=== PATIENT | female | born 1955 | race Two or more races ===

== ENCOUNTER 2017-02-10 16:32 | Inpatient (IN) | payer MEDICARE, MEDICAID ==
[~2017-02-10] VITALS: Ht 147.3 cm; Wt 61.7 kg
--- NOTE | 2017-02-10 16:35 | NUR ---
BIB PRIVATE EMT FROM [facility] FOR MEDICAL CLEARANCE PRIOR TO GPS ADMISSION FOR AGITATION AND DTO, NAD NOTED, VSS, RESP EVEN AND UNLABORED. AT BS.
--- NOTE | 2017-02-10 16:40 | NUR ---
BLOOD AND URINE SAMPLE SENT TO LAB
[2017-02-10 16:58] LABS: BASOPHILS % (AUTO) 0.2 % (0.0-2.0); EOSINOPHILS % (AUTO) 0.3 % (0.0-6.0); HEMATOCRIT 43 % (33-45); HEMOGLOBIN 14.1 g/dL (11.5-14.8); LYMPHOCYTES # (AUTO) 2.3 /CMM (0.8-4.8); LYMPHOCYTES % (AUTO) 18.7 % (20.0-44.0); MEAN CORPUSCULAR HEMOGLOBIN 30 PG (26.0-33.0); MEAN CORPUSCULAR HGB CONC 33 g/dl (31.0-36.0); MEAN CORPUSCULAR VOLUME 90 fL (82-100); MONOCYTES # (AUTO) 0.6 /CMM (0.1-1.30); MONOCYTES % (AUTO) 4.9 % (2.0-12.0); NEUTROPHILS # (AUTO) 9.4 /CMM (1.8-8.9); NEUTROPHILS % (AUTO) 75.9 % (43.0-81.0); PLATELET COUNT (AUTO) 286 /CMM (150-450); RDW COEFFICIENT OF VARIATION 13.6 (11.5-15.0); RED BLOOD CELL COUNT(AUTO) 4.74 MIL/uL (4.0-5.2); WHITE BLOOD COUNT (AUTO) 12.4 K/uL (4.3-11.0)
[2017-02-10 17:13] LABS: CALCIUM, SERUM 9.5 mg/dL (8.5-10.1); CARBON DIOXIDE 23 mmol/L (21-32); CHLORIDE 105 mmol/L (98-107); CREATININE 0.9 mg/dL (0.6-1.3); GLUCOSE 115 mg/dL (74-106); SODIUM SERUM 137 mmol/L (136-145); UREA NITROGEN, BLOOD 16 mg/dL (7-18)
[2017-02-10 17:16] LABS: ALCOHOL, BLOOD < 3 mg/dL (0-0)
[2017-02-10 17:19] LABS: TROPONIN I < 0.017 ng/mL (0.00-0.056)
[2017-02-10 17:40] LABS: APPEARANCE,URINE CLEAR (CLEAR); BILIRUBIN,URINE NEGATIVE (NEGATIVE); BLOOD, URINE NEGATIVE Ery/uL (NEGATIVE); COLOR,URINE YELLOW (YELLOW); KETONES,URINE NEGATIVE (NEGATIVE); LEUKOCYTE ESTERASE ,URINE NEGATIVE (NEGATIVE); NITRITE, URINE NEGATIVE (NEGATIVE); PROTEIN,URINE NEGATIVE (NEGATIVE); UGLUCOSE NEGATIVE (NEGATIVE); UROBILINOGEN,URINE 0.2 EU/dL (0.2)
--- NOTE | 2017-02-10 18:18 | NUR ---
REPORT GIVEN TO [facility] FOR [facility]
[2017-02-10] MEDS ORDERED: ACETAMINOPHEN 325 MG TABLET PO PRN (18:30)
[2017-02-10 18:49] VITALS: BP 123/78
--- NOTE | 2017-02-10 18:51 | NUR ---
Pt. arrived in the unit via a wheelchair from ER and wheeled by EMT. V/S taken, contraband done and dinner served. Dr. Boo notified about the admission and gave orders. Will endorse to the incoming nurse for the completion of the admission.
[2017-02-10 19:04] LABS: THYROID STIMULATING HORMONE 2.591 uIU/mL (0.358-3.74)
[2017-02-10 20:00] VITALS: BP 115/68
--- NOTE | 2017-02-10 21:55 | NUR ---
ADMISSION NOTES ADMITTED THIS 61 Y/O FEMALE PATIENT ADMIT FROM [facility] ER , PT. INTIALLY CAME FROM HOME. PT IS ON 5150 HOLD FOR GD, DANGER TO HER SELF , DANGER TO OTHERS PER HOLD HER SISTER HOUSE FOR THREATS MANIC SCREAMING YELLING THREATS TO HURT THEM , DELUSIONAL BELIVES THAT HER HOUSE WAS TAKEN FROM HER. UPON FACE TO FACE ASSESSMENT PATIENT IS A&O X-2-3, DEPRESSED DISORGANIZED THOUGHTS DISHELVED , EASILY AGITATED ,THE PT. MOOD DEPRESSED PT. IS POOR HISTORIAN, POOR INSIGHT ,POOR JUDGEMENT ,V/S WNL, NO ACUTE RESPIRATORY , UNOBTAIN TO ANY MEDICAL HX AND LIST OF MEDICATION ,MD AWARE AND NOTIFIED OF THE ADMISSION, PT. REFUSED TO SIGNS ON ADMISSION DOCMENTS AND PT. REFUSED SKIN ASSESSMENT PER PT. MY SKIN IS CLEAR. BELONGINGS AND CONTRABAND CHECKED AND PLACED IN THE SAFE CABINET. PATIENT RIGHT HAND BOOK GIVEN AND EXPLAINED TO THE PT. ALL NEEDS ATTENDED AND ANTICIPATED.ENCOURAGED PT. VERVALIZED ANY FEELING OR CONCERN TO STAFF, ORIENTED TO UNIT WILL CONTINUE TO MONITOR FOR SAFETY AND BEHAVIOR.
[2017-02-10] MEDS: TEMAZEPAM 7.5 MG CAPSULE PO PRN (22:36)
[2017-02-11 07:53] LABS: ALBUMIN 3.5 g/dL (3.4-5.0); BILIRUBIN,TOTAL 0.3 mg/dL (0.2-1.0); CALCIUM, SERUM 9.2 mg/dL (8.5-10.1); CREATININE 0.8 mg/dL (0.6-1.3); POTASSIUM 4.7 mmol/L (3.5-5.1); TOTAL PROTEIN, SERUM 7.5 g/dL (6.4-8.2)
[2017-02-11 07:55] VITALS: BP 122/83
[2017-02-11 08:01] LABS: CHOLESTEROL 249 mg/dL (<200); HDL CHOLESTEROL 48 mg/dL (40-60); LDL 168 mg/dL (0-99); TRIGLYCERIDES 215 mg/dL (30-150)
[2017-02-11] MEDS: risperiDONE 1 MG TABLET PO SCH ×2 (10:00→17:00)
[2017-02-11] MEDS ORDERED: risperiDONE 1 MG TABLET PO PRN (14:30)
[2017-02-11 16:00] VITALS: BP 141/80
[2017-02-11] MEDS: BENZTROPINE MESYLATE (1 MG) 1 MG TABLET PO SCH (17:00)
[2017-02-11 19:48] VITALS: BP 121/73
[2017-02-11] MEDS: TEMAZEPAM 7.5 MG CAPSULE PO PRN (21:51)
[2017-02-12 08:00] VITALS: BP 116/76
[2017-02-12] MEDS: BENZTROPINE MESYLATE (1 MG) 1 MG TABLET PO SCH ×2 (08:32→16:50)
[2017-02-12] MEDS: risperiDONE 1 MG TABLET PO SCH ×2 (08:32→16:50)
--- NOTE | 2017-02-12 08:33 | NUR ---
GPS RN NOTE: PATIENT IN THE ROOM CALM AND QUET NO S/S DISTRESS NOTED PATIENT DENIES SI/HI AT THIS TIME DEPRESSED MOOD PATIENT REFUSED MA MEDICATIONS PT STATED "IM TAKING ONLY SLEEPING PILLS THAT IS ALL I NEED " VSS WNL WILL CONTINUE MONITORING FOR SAFETY AND BEHAVIOR Q 15 MIN
[2017-02-12 16:08] VITALS: BP 120/60
--- NOTE | 2017-02-12 17:17 | NUR ---
GPS RN NOTE: PATIENT REFUSED ALL SHIFT MEDICATIONS DR JEFFERSON AWARE, WILL CONTINUE MONITORING FOR SAFETY AND BEHAVIOR Q 15 MIN.
[2017-02-12] MEDS: MAGNESIUM HYDROXIDE 30 ML UDC PO PRN (18:10)
[2017-02-12 20:07] VITALS: BP 112/68
--- NOTE | 2017-02-12 21:44 | NUR ---
GPS RN: PATIENT COMPLAINED OF ABDOMINAL PAIN AND NOT BEING ABLE TO PASS STOOLS FOR A COUPLE OF DAYS. PATIENT GIVEN MOM BY DAY SHIFT NURSE , BUT WAS NOT EFFECTIVE. AROUND 1929, PATIENT WAS GIVEN PRUNE JUICE BY KENNEL HELPER AWAITING FOR ANY EFFECTS. AT AROUND 2129, PATIENT COMPLAINED STILL OF ABDOMINAL PAIN AND DISCOMFORT. JAYY OLIVARES CALLED FOR ANY FURTHER ORDERS. HE CALLED BACK FOR ORDERS TO DO ABDOMINAL XRAY, IF NEGATIVE FOR ANY OBSTRUCTION THEN PATIENT CAN BE GIVEN FLEET ENEMA. ORDERS NOTED AND CARRIED OUT. PATIENT WHEELED DOWN TO RADIOLOGY DEPARTMENT WITH THUAN BRASWELL. AWAITING FOR RESULTS.
[2017-02-12] MEDS: TEMAZEPAM 7.5 MG CAPSULE PO PRN (23:21)
[2017-02-13] MEDS ORDERED: NA PHOS,M-B/NA PHOS,DI-BA 1 EA ENEMA RC STA (00:08)
[2017-02-13] MEDS ORDERED: NA PHOS,M-B/NA PHOS,DI-BA 1 EA ENEMA RC ONE (00:12)
--- NOTE | 2017-02-13 00:30 | NUR ---
GPS RN: ABDOMINAL X-RAY RESULTS SHOWED NO EVIDENCE OF OBSTRUCTION, NO ABNORMAL CALCIFICATIONS ON THE URINARY TRACTS. FLEET ENEMA THEN ORDERED PREVIOUSLY ORDERED BY PATIENT IS CONFUSED, DENIES ANY SUICIDAL THOUGHTS OR PLANS THIS TIME. JAYY OLIVARES NP. BRAYDEN GROVER RN TOOK THE MEDICATION FROM THE OMNICELL OVERRIDE AND ADMINISTERED TO THE PATIENT.
[2017-02-13 08:06] VITALS: BP 121/76
[2017-02-13] MEDS: risperiDONE 1 MG TABLET PO SCH ×2 (08:07→17:00)
[2017-02-13] MEDS: BENZTROPINE MESYLATE (1 MG) 1 MG TABLET PO SCH ×2 (08:07→17:00)
--- NOTE | 2017-02-13 08:59 | NUR ---
Initial discharge plan: Per patient she lives with her two sisters Josefa and Lisa ([address] [place] [address]). She does not want to return with her sisters upon discharge. SW to communicate with the patients sister (Josefa Beckwith- [phone]) regarding most appropriate discharge plan. SW to help form a safe and proper discharge.
--- NOTE | 2017-02-13 12:42 | NUR ---
equipment worker spoke to patients sister (Josefa Beckwith- [phone]) patient's sister's stated that they can no longer take care of the patient and will need placement. equipment worker will follow-up.
[2017-02-13 15:54] VITALS: BP 100/66
[2017-02-13 20:17] VITALS: BP 119/70
[2017-02-13] MEDS: TEMAZEPAM 7.5 MG CAPSULE PO PRN (21:01)
[2017-02-14] MEDS: risperiDONE 1 MG TABLET PO SCH ×2 (08:38→16:28)
[2017-02-14] MEDS: BENZTROPINE MESYLATE (1 MG) 1 MG TABLET PO SCH ×2 (08:38→16:28)
[2017-02-14 08:39] VITALS: BP 107/69
--- NOTE | 2017-02-14 11:32 | NUR ---
campaign worker spoke to patient regarding placement. Patient appeared frustrated and irritable, Patient stated that she wanted to return home to [address] [address], However, per patient's sisters patient sold that house and she no longer owns it. Patient began to yell about how she worked for [employer] and did not receive insurance money. Patient yelling and irritable and unable to discuss placement. campaign worker will attempt again later.
[2017-02-14 16:37] VITALS: BP 127/77
--- NOTE | 2017-02-14 18:05 | NUR ---
RN-CO: Patient refused all her medications in the afternoon. Patient stated " you all are pushers of medications!" She became agitated when I asked her twice.
[2017-02-14 19:53] VITALS: BP 103/59
[2017-02-14] MEDS: TEMAZEPAM 7.5 MG CAPSULE PO PRN (21:07)
[2017-02-15 07:01] VITALS: BP 110/62
[2017-02-15 08:09] VITALS: BP 126/76
[2017-02-15] MEDS: BENZTROPINE MESYLATE (1 MG) 1 MG TABLET PO SCH ×2 (08:47→15:41)
[2017-02-15] MEDS: risperiDONE 1 MG TABLET PO SCH (08:48)
--- NOTE | 2017-02-15 09:00 | NUR ---
GPS/RN PATIENT ADAMANTLY REFUSED ALL 0900 MEDICATIONS X 3, EXPLAINED RISKS AND BENEFITS, CONTINUES TO REFUSE, WILL CONTINUE TO ENCOURAGE TO COMPLY WITH MD REGIMEN.
[2017-02-15] MEDS: MAGNESIUM HYDROXIDE 30 ML UDC PO PRN (15:41)
[2017-02-15 16:43] VITALS: BP 115/71
[2017-02-15] MEDS: HALOPERIDOL 5 MG TABLET PO SCH (16:54)
[2017-02-15 20:00] VITALS: BP 115/73
[2017-02-15] MEDS: TEMAZEPAM 7.5 MG CAPSULE PO PRN (21:37)
[2017-02-16 08:00] VITALS: BP 119/72
[2017-02-16] MEDS: HALOPERIDOL 5 MG TABLET PO SCH ×2 (08:35→18:03)
[2017-02-16] MEDS: BENZTROPINE MESYLATE (1 MG) 1 MG TABLET PO SCH ×2 (08:35→18:03)
--- NOTE | 2017-02-16 15:48 | NUR ---
community mental health social worker spoke to patient regarding placement. Patient appeared more calm, Patient stated that she wanted to return home to [address] [address], However, per patient's sisters patient sold that house and she no longer owns it. community mental health social worker informed patient that her sister's had stated that she no longer owned that house and that she had sold it. community mental health social worker informed patient that she cannot be discharged to a home she does not own or live there any longer. community mental health social worker asked patient if she wnated placement as her sisters stated that she can no longer live with her. Patient became frustrated and irritable and began to yell about how they had committed fraud and she had gone to [facility] and stated that as soon as she gets out she was going to go "kick out" the people that live there. Patient also refusing placement. community mental health social worker will attempted to contact patient's sister Josefa Beckwith- [phone]) however, she was unavailable. community mental health social worker unable to leave a message, No voicemail box set up. community mental health social worker will follow-up.
[2017-02-16 16:00] VITALS: BP 119/68
[2017-02-16 20:00] VITALS: BP 116/71
[2017-02-16] MEDS: TEMAZEPAM 7.5 MG CAPSULE PO PRN (21:29)
[2017-02-17 08:00] VITALS: BP 141/77
[2017-02-17] MEDS: BENZTROPINE MESYLATE (1 MG) 1 MG TABLET PO SCH ×2 (08:12→17:00)
[2017-02-17] MEDS: HALOPERIDOL 5 MG TABLET PO SCH ×2 (08:12→17:00)
[2017-02-17] MEDS: HALOPERIDOL LACTATE INJ 5 MG/ML VIAL IM PRN ×2 (08:15→17:07)
[2017-02-17] MEDS: BENZTROPINE MESYLATE (2MG/2ML) 2 MG/2 ML AMPUL IM PRN ×2 (08:15→17:07)
--- NOTE | 2017-02-17 08:24 | NUR ---
GPS/RN PT REFUSED PO AM MEDS X3. HALDOL 5MG IM AND COGENTIN 1MG IM GIVEN ORDERED.
[2017-02-17 16:00] VITALS: BP 137/82
[2017-02-17 20:00] VITALS: BP 119/66
[2017-02-17] MEDS: TEMAZEPAM 7.5 MG CAPSULE PO PRN (22:17)
[2017-02-18 07:45] VITALS: BP 121/78
[2017-02-18] MEDS: HALOPERIDOL 5 MG TABLET PO SCH ×2 (08:54→16:12)
[2017-02-18] MEDS: BENZTROPINE MESYLATE (1 MG) 1 MG TABLET PO SCH ×2 (08:54→16:11)
[2017-02-18] MEDS: BENZTROPINE MESYLATE (2MG/2ML) 2 MG/2 ML AMPUL IM PRN (08:55)
[2017-02-18] MEDS: HALOPERIDOL LACTATE INJ 5 MG/ML VIAL IM PRN (08:55)
[2017-02-18] MEDS ORDERED: HALOPERIDOL DECANOATE IM 100 MG/ML AMPUL IM ONE (14:30)
[2017-02-18 16:00] VITALS: BP 116/83
[2017-02-18 20:00] VITALS: BP 120/66
[2017-02-18] MEDS: TEMAZEPAM 7.5 MG CAPSULE PO PRN (21:31)
[2017-02-19] MEDS: BENZTROPINE MESYLATE (1 MG) 1 MG TABLET PO SCH ×2 (08:05→16:45)
[2017-02-19] MEDS: HALOPERIDOL 5 MG TABLET PO SCH ×2 (08:05→16:45)
[2017-02-19 08:51] VITALS: BP 141/78
--- NOTE | 2017-02-19 11:27 | NUR ---
make up worker attempted to contact patient's sister Josefa Beckwith- [phone]) however, she was unavailable. make up worker unable to leave a message, No voicemail box set up. make up worker will follow-up.
[2017-02-19 16:00] VITALS: BP 123/76
--- NOTE | 2017-02-19 16:30 | NUR ---
GPS/RN PATIENT WROTE ON THE [employer] IN HER ROOM WITH PENCIL, WHEN ASKED WHY SHE STATED, " I WANT TO GO HOME TO MY HOUSE AND NO ONE WILL BELIEVE ME". DR SANTACRUZ AND CHARGE NURSE MADE AWARE.
--- NOTE | 2017-02-19 19:30 | NUR ---
GPS RN NOTE, RECEIVED PATIENT AWAKE AND IN BED, NO S/S OR COMPLAINTS OF PAIN AT THIS TIME. PATIENT IS DISPLAYING NO S/S OF APPARENT DISTRESS AT THIS TIME. PATIENT BREATHING IS UNLABORED WITH EQUAL RISE AND FALL OF THE CHEST. PATIENT IS ALERT AND ORIENTED X 3 ON ROOM AIR WITH A SPO2 OF 96%. PATIENT IS CALM, ANXIOUS, SELECTIVE WITH MEDICATION, COOPERATIVE, AND NEEDS REORIENTATION. PATIENT DENIES SUICIDE IDEATIONS AND HOMICIDAL IDEATIONS AT THIS TIME. PATIENT EDUCATED ON THE USE OF THE CALL CONTE. PATIENT BED SIDE RAILS UP X2 FOR SAFETY, BED IS LOCKED AND LOW, AND I WILL CONTINUE TO MONITOR AND MAINTAIN SAFETY Q15MIN WITH THE HELP OF STAFF.
[2017-02-19 19:56] VITALS: BP 108/85
[2017-02-19 20:02] VITALS: BP 108/85
[2017-02-19] MEDS: DIVALPROEX SODIUM 500 MG TABLET.DR PO SCH (20:44)
--- NOTE | 2017-02-19 20:44 | NUR ---
GPS RN NOTE, PATIENT REFUSED TO TAKE DEPAKOTE 500 MG 1 TAB PO Q12HR. OFFERED DEPAKOTE THREE TIMES AND STILL PATIENT REFUSED STATING, " I DON'T HAVE SEIZURES AND MAKES ME FELL STRANGE ". EDUCATED PATIENT ON THE RISKS AND BENEFITS OF TAKING AND REFUSING AFOREMENTIONED MEDICATION. WILL CONTINUE TO MONITOR THIS PATIENT.
[2017-02-19] MEDS: TEMAZEPAM 7.5 MG CAPSULE PO PRN (21:07)
--- NOTE | 2017-02-19 21:07 | NUR ---
GPS RN NOTE, PATIENT HAS A COMPLAINT OF NOT BEING ABLE TO SLEEP AND IS REQUESTING RESTORIL AT THIS TIME. PATIENT VITAL SIGNS ARE STABLE. GAVE RESTORIL 7.5 MG PO HS ORDERED. WILL REASSESS FOR INSOMNIA AND I WILL CONTINUE TO MONITOR THIS PATIENT.
--- NOTE | 2017-02-20 05:28 | NUR ---
GPS RN NOTE, PATIENT HAS A COMPLAINT OF HEAD ACHE AND IS REQUESTING TYLENOL AT THIS TIME. PATIENT VITAL SIGNS ARE STABLE. GAVE TYLENOL 650MG PO Q6HR PRN ORDERED. WILL REASSESS PAIN AND I WILL CONTINUE TO MONITOR THIS PATIENT.
--- NOTE | 2017-02-20 07:32 | NUR ---
PT RECEIVED SITTING COMFORTABLY IN CHAIR PROVIDED IN PATIENT'S ROOM. NO S/S OR C/O PAIN OR DISTRESS NOTED. SIDE RAILS UP X2, WILL CONTINUE PLAN OF CARE.
[2017-02-20 08:00] VITALS: BP 118/79
[2017-02-20] MEDS: DIVALPROEX SODIUM 500 MG TABLET.DR PO SCH ×2 (09:00→21:00)
[2017-02-20] MEDS: BENZTROPINE MESYLATE (1 MG) 1 MG TABLET PO SCH ×2 (09:15→18:08)
[2017-02-20] MEDS: HALOPERIDOL 5 MG TABLET PO SCH ×2 (09:15→18:08)
[2017-02-20 15:39] VITALS: BP 112/70
[2017-02-20] MEDS: MAGNESIUM HYDROXIDE 30 ML UDC PO PRN (18:26)
--- NOTE | 2017-02-20 18:33 | NUR ---
CHANGE OF SHIFT REPORT PT RESTING IN BED. NO S/S OR C/O PAIN OR DISTRESS NOTED. SIDE RAILS UP X2. PT KEPT CLEAN, DRY, AND COMFORTABLE. NO SIGNIFICANT CHANGES SINCE PREVIOUS SHIFT. WILL GIVE REPORT TO [facility].
[2017-02-20 19:51] VITALS: BP 100/81
[2017-02-20] MEDS: TEMAZEPAM 7.5 MG CAPSULE PO PRN (21:27)
--- NOTE | 2017-02-20 21:28 | NUR ---
RN NOTES PATIENT REFUSED 2100 DEPAKOTE SCHEDULED MEDICATION OFFERED X3, BUT STILL REFUSED, WILL CONTINUE TO ENCOURAGED TO COMPLY WITH MD REGIMEN .
--- NOTE | 2017-02-21 06:16 | NUR ---
RN NOTES PATIENT REFUSED AM LABS ENCOURAGED X3, BUT STILL REFUSED, WILL CONTINUE TO ENCOURAGED TO COMPLY WITH MD REGIMEN
--- NOTE | 2017-02-21 07:15 | NUR ---
RN OPENING NOTES REC'VD REPORT FROM [facility]. PT AMBULATING INDEPENDENTLY IN HALLWAY. NO APPARENT DISTRESS. 5250 PSYCHOSIS, H/O SCHIZO. WILL CONT TO MONITOR CLOSELY.
[2017-02-21] MEDS: HALOPERIDOL 5 MG TABLET PO SCH ×2 (08:15→16:52)
[2017-02-21] MEDS: DIVALPROEX SODIUM 500 MG TABLET.DR PO SCH ×2 (08:15→21:00)
[2017-02-21] MEDS: BENZTROPINE MESYLATE (1 MG) 1 MG TABLET PO SCH ×2 (08:15→16:45)
--- NOTE | 2017-02-21 08:15 | NUR ---
RN NOTES PT REFUSED BLOOD DRAW AND SPIT DEPAKOTE INTO TOILET.
[2017-02-21 08:20] VITALS: BP 103/66
[2017-02-21] MEDS ORDERED: SIMETHICONE 80 MG TAB.CHEW PO PRN (15:30)
[2017-02-21 15:49] VITALS: BP 116/87
--- NOTE | 2017-02-21 16:11 | NUR ---
SW spoke to patient regarding discharge plan. Patient is still refusing placement and stated that she will only go home or if she couldn't she wants to go back with her sister. Patient informed her that she would follow-up with her sister.
--- NOTE | 2017-02-21 16:30 | NUR ---
remelt worker spoke to patients sister Neeta Beckwith- [phone]. patient's sister's stated that they can no longer take care of the patient because she stated that patient can be violent and verbally abusive. Patient's sister stated that patient needs placement even if its for a couple of months and than she may agree to take her back. remelt worker informed patient's sister that she would keep her informed.
[2017-02-21] MEDS: DOCUSATE SODIUM 100 MG CAPSULE PO SCH (16:45)
--- NOTE | 2017-02-21 18:08 | NUR ---
RN CLOSING NOTES NO INCIDENTS DURING SHIFT. PT SOME MEDS. GOOD APPETITE. WANDERING HALLS MAKING RANDOM STATEMENTS. CALM. DENIES SI/HI AVH.
[2017-02-21 19:34] VITALS: BP 114/71
[2017-02-21] MEDS: TEMAZEPAM 7.5 MG CAPSULE PO PRN (21:27)
--- NOTE | 2017-02-21 21:30 | NUR ---
RN NOTES PATIENT REFUSED 2100 DEPAKOTE 500 MG PO ,SCHEDULED MEDICATION OFFERED X3, BUT STILL REFUSED, WILL CONTINUE TO ENCOURAGED TO COMPLY WITH MD REGIMEN .
[2017-02-21] MEDS: MAG HYDROX/AL HYDROX/SIMETH 30 ML UDC PO PRN (21:33)
[2017-02-22 07:14] LABS: BASOPHILS % (AUTO) 0.4 % (0.0-2.0); EOSINOPHILS # (AUTO) 0.2 /CMM (0.0-0.7); EOSINOPHILS % (AUTO) 1.6 % (0.0-6.0); HEMATOCRIT 41 % (33-45); HEMOGLOBIN 13.7 g/dL (11.5-14.8); LYMPHOCYTES # (AUTO) 4.2 /CMM (0.8-4.8); LYMPHOCYTES % (AUTO) 41.2 % (20.0-44.0); MEAN CORPUSCULAR HEMOGLOBIN 30 PG (26.0-33.0); MEAN CORPUSCULAR HGB CONC 34 g/dl (31.0-36.0); MEAN CORPUSCULAR VOLUME 90 fL (82-100); MONOCYTES # (AUTO) 0.8 /CMM (0.1-1.30); MONOCYTES % (AUTO) 7.5 % (2.0-12.0); NEUTROPHILS # (AUTO) 5.1 /CMM (1.8-8.9); NEUTROPHILS % (AUTO) 49.3 % (43.0-81.0); PLATELET COUNT (AUTO) 283 /CMM (150-450); RDW COEFFICIENT OF VARIATION 13.3 (11.5-15.0); RED BLOOD CELL COUNT(AUTO) 4.54 MIL/uL (4.0-5.2); WHITE BLOOD COUNT (AUTO) 10.3 K/uL (4.3-11.0)
[2017-02-22 07:35] LABS: CALCIUM, SERUM 8.7 mg/dL (8.5-10.1); CREATININE 0.8 mg/dL (0.6-1.3); POTASSIUM 4.2 mmol/L (3.5-5.1)
[2017-02-22 08:00] VITALS: BP 106/78
[2017-02-22] MEDS: DOCUSATE SODIUM 100 MG CAPSULE PO SCH ×2 (08:20→16:26)
[2017-02-22] MEDS: DIVALPROEX SODIUM 500 MG TABLET.DR PO SCH ×2 (08:20→22:26)
[2017-02-22] MEDS: HALOPERIDOL 5 MG TABLET PO SCH ×2 (08:21→16:26)
[2017-02-22] MEDS: BENZTROPINE MESYLATE (1 MG) 1 MG TABLET PO SCH ×2 (08:21→16:26)
[2017-02-22] MEDS: MAG HYDROX/AL HYDROX/SIMETH 30 ML UDC PO PRN (15:10)
[2017-02-22 16:00] VITALS: BP 115/83
[2017-02-22 20:00] VITALS: BP 113/73
[2017-02-22] MEDS: TEMAZEPAM 7.5 MG CAPSULE PO PRN (22:26)
[2017-02-23 08:00] VITALS: BP 114/68
[2017-02-23] MEDS: BENZTROPINE MESYLATE (1 MG) 1 MG TABLET PO SCH ×2 (08:50→17:29)
[2017-02-23] MEDS: FAMOTIDINE (20 MG) 20 MG TABLET PO SCH (08:50)
[2017-02-23] MEDS: DOCUSATE SODIUM 100 MG CAPSULE PO SCH ×2 (08:50→17:29)
[2017-02-23] MEDS: HALOPERIDOL 5 MG TABLET PO SCH ×2 (08:50→17:29)
[2017-02-23] MEDS: DIVALPROEX SODIUM 500 MG TABLET.DR PO SCH ×2 (08:50→20:11)
[2017-02-23 16:09] VITALS: BP 125/73
[2017-02-23 20:00] VITALS: BP 128/74
[2017-02-23] MEDS: TEMAZEPAM 7.5 MG CAPSULE PO PRN (21:05)
[2017-02-24] MEDS: LORAZEPAM 0.5 MG TABLET PO PRN (00:48)
[2017-02-24 08:00] VITALS: BP 127/73
[2017-02-24] MEDS: FAMOTIDINE (20 MG) 20 MG TABLET PO SCH (08:34)
[2017-02-24] MEDS: BENZTROPINE MESYLATE (1 MG) 1 MG TABLET PO SCH ×2 (08:34→17:34)
[2017-02-24] MEDS: HALOPERIDOL 5 MG TABLET PO SCH ×2 (08:34→17:34)
[2017-02-24] MEDS: DOCUSATE SODIUM 100 MG CAPSULE PO SCH ×2 (08:34→17:34)
[2017-02-24] MEDS: DIVALPROEX SODIUM 500 MG TABLET.DR PO SCH ×2 (08:34→22:11)
[2017-02-24 16:00] VITALS: BP 111/61
[2017-02-24 20:00] VITALS: BP 107/70
--- NOTE | 2017-02-24 21:10 | NUR ---
RN NOTES PATIENT DEMANDED RESTORIL, STATING "I WILL TAKE THIS MEDICINE AND THAT'S IT." GIVEN RESTORIL AND SPIT OUT DEPAKOTE IN THE TOILET.
--- NOTE | 2017-02-25 06:59 | NUR ---
RN NOTES PATIENT IS AWAKE, AMBULATING IN THE HALLWAY, STAYED IN BED MOST OF THE TIME, NO DISTRESS, CALM AT THIS TIME
[2017-02-25 07:51] VITALS: BP 119/79
[2017-02-25] MEDS: DIVALPROEX SODIUM 500 MG TABLET.DR PO SCH ×2 (09:18→20:27)
[2017-02-25] MEDS: DOCUSATE SODIUM 100 MG CAPSULE PO SCH ×2 (09:18→17:33)
[2017-02-25] MEDS: FAMOTIDINE (20 MG) 20 MG TABLET PO SCH (09:18)
[2017-02-25] MEDS: HALOPERIDOL 5 MG TABLET PO SCH ×2 (09:19→17:33)
[2017-02-25] MEDS: BENZTROPINE MESYLATE (1 MG) 1 MG TABLET PO SCH ×2 (09:19→17:33)
[2017-02-25 15:34] VITALS: BP 108/62
[2017-02-25 19:46] VITALS: BP 130/87
[2017-02-25] MEDS: LORAZEPAM 0.5 MG TABLET PO PRN (20:26)
[2017-02-25] MEDS: TEMAZEPAM 7.5 MG CAPSULE PO PRN (22:43)
[2017-02-26 07:59] VITALS: BP 121/76
[2017-02-26] MEDS: DOCUSATE SODIUM 100 MG CAPSULE PO SCH ×2 (08:43→16:27)
[2017-02-26] MEDS: BENZTROPINE MESYLATE (1 MG) 1 MG TABLET PO SCH ×2 (08:43→16:27)
[2017-02-26] MEDS: FAMOTIDINE (20 MG) 20 MG TABLET PO SCH (08:43)
[2017-02-26] MEDS: HALOPERIDOL 5 MG TABLET PO SCH ×2 (08:44→16:27)
[2017-02-26] MEDS: DIVALPROEX SODIUM 500 MG TABLET.DR PO SCH (08:46)
--- NOTE | 2017-02-26 10:55 | NUR ---
SW spoke to patient regarding discharge plan. Patient is still refusing placement and stated that she will only go home or if she couldn't, she wants to go back with her sister or stated that she has a brother and could possibly go live with him. Patient informed her that she would follow-up with her sister.
--- NOTE | 2017-02-26 11:09 | NUR ---
line up worker spoke to patients sister Neeta Beckwith- [phone], who stated that she would apple picker the patient when the assigned psychiatrist gives the order for discharge. line up worker will follow-up.
[2017-02-26 15:32] VITALS: BP 110/62
--- NOTE | 2017-02-26 15:57 | NUR ---
Discharge Note: Patient will be discharged home [address] [place] [address] ([phone]). Patient's sister's Neeta Beckwith and Josefa Beckwith ([phone]) were notified and will pick her up via private vehicle. Patient and patient's sister's were agreeable with the discharge plan. Patient denied suicidal and homicidal ideations. Patient was referred to [facility] ([phone]) [address] [place] [address]. Patient agreed to follow-up within 30 days. Facilitated info to IDT team who are in agreement with discharge arrangement. The multidisciplinary exitcare form was done, printed, signed, and given to the patient.
--- NOTE | 2017-02-26 16:34 | NUR ---
knockdown [email or web address] ([phone]). knockdown worker will follow-up.
[2017-02-26] MEDS: LORAZEPAM 0.5 MG TABLET PO PRN (16:38)
--- NOTE | 2017-02-26 17:31 | NUR ---
GPS NANOTECHNOLOGY ENGINEERING TECHNOLOGIST NOTE: PATIENT DISCHARGE TO HOME [id number] [email or web address] [address] PICKED UP BY SISTERS RAE NAVARRETE AND NINA NAVARRETE.PT IN STABLE CONDITION NO S/S DISTRESS NOTED PT COMPLIANT WITH MEDICATIONS, VSS STABLE ,EXIT CARE DONE PRINTED PT REFUSED TO SIGN DISCHARGE PAPERS. DR NEETA SMITH PT WITH HOME HEALTH FOR MEDICATIONS MANAGEMENT.PT REFUSED SKIN ASSESSMENT BY STATING"MY SKIN IS INTACT ". ALL BELONGINGS AND VALUABLES RETURNED TO PATIENT ,PT DENIES SUICIDAL AND HOMICIDAL IDEATION AT THIS DISCHARGE. EXPLAIN MEDICATIONS MANAGEMENT PT VERBALIZED UNDERSTANDING.
== END 2017-02-26 17:45 | disposition home health service (06) | DRG 885 ==
LOC: ER 16:35 → GPS 17:31
PROVIDERS: ADMIT Psychiatry & Neurology Psychosomatic Medicine; ATTEND Nurse Practitioner Acute Care
DX: F20.0 Paranoid schizophrenia (principal); F29 Unspecified psychosis not due to a substance or known physiological condition; D72.829 Elevated white blood cell count, unspecified; E66.3 Overweight; E78.5 Hyperlipidemia, unspecified; Z68.28 Body mass index [BMI] 28.0-28.9, adult
CPT/HCPCS: 36415; 74000-TC; 80048-TC; 80053-TC; 80061-TC; 80305; 81000-TC; 84443-TC; 84484-TC; 85025-TC; 87081-TC; A4606; G0480; J0515; J1630; J1631; Z7610